=== PATIENT | female | born 1970 | race Caucasian/White ===

== ENCOUNTER 2019-01-08 12:21 | Emergency (ER) | payer OTHER ==
[2019-01-08 12:29] VITALS: BP 140/83
[2019-01-08] MEDS ORDERED: ALB18R INH ×2 (12:36→13:46)
--- NOTE | 2019-01-08 13:48 | ER Report ---
History and Physical Time Seen By MD: 12:45 Hx. of Stated Complaint: PATIENT STATES BRONCHITIS 1 MONTH AGO AND FINISHED ABD AND STEROIDS A FEW WEEKS AGO. JUST MOVED FROM [facility]. STATES SHE IS ALMOST OUT OF HER VENTOLIN. STATES HER BREATHING IS FINE BUT NOT THE BEST. APPEARS RELAXED AND NORMAL BREATHING HPI/ROS Moved to [place] from [place]. Is out of her Albuterol MDI, and has been needing it prn. No chest pain. No fever. Daily smoker. No PCM. Remainder of the 14 system rev: Yes Allergies: Coded Allergies: No Known Drug Allergies (Unverified , 01/08/19) Home Meds Active Scripts Albuterol Sulfate (VENTOLIN HFA) 18 Gm Inh, 2 PUFF INH Q4-6H for 30 Days, #1 INH Prov:CINTHIA MONTEIRO MD 01/08/19 Reported Medications Albuterol Sulfate (VENTOLIN HFA) 18 Gm Inh, 2 PUFF INH Q4-6H, INH 01/08/19 Reviewed Nurses Notes: Yes Old Medical Records Reviewed: Yes Constitutional Vital Sign - Last 24 Hours 01/08/19 12:29 Pulse 78 Resp 16 B/P (MAP) 140/83 Pulse Ox 97 O2 Delivery Room Air Physical Exam General Appearance: The patient is alert, has no immediate need for airway protection and no current signs of toxicity. Eyes: Pupils equal and round no injection. Respiratory: Chest is non tender, lungs are clear to auscultation. Cardiac: regular rate and rhythm Skin: No rashes or lesions. Medical Decision Making ED Course/Re-evaluation ED Course No acute complaints. Presented to the ED for refill of Albuterol MDI. Given RX for Ventolin. Decision to Disposition Date: Jan 08, 2019 Decision to Disposition Time: 13:45 Depart Departure Latest Vital Signs Vital Signs Date Time Temp Pulse Resp B/P (MAP) Pulse Ox O2 Delivery O2 Flow Rate FiO2 01/08/19 12:29 78 16 140/83 97 Room Air Impression: Primary Impression: Medication refill Condition: Improved Disposition: HOME OR SELF-CARE New Scripts Albuterol Sulfate (VENTOLIN HFA) 18 Gm Inh 2 PUFF INH Q4-6H for 30 Days, #1 INH Prov: CINTHIA MONTEIRO MD 01/08/19 Departure Forms: Medications Reconciliation, Patient Portal Information, ER Transition Record Additional Instructions: You have an appointment scheduled with a primary provider on FridayJanuary 22 at 0800 in the [facility] CINTHIA MONTEIRO MD Jan 08, 2019 13:48
== END 2019-01-08 13:52 | disposition home or self-care (01) ==
LOC: ER 12:49
DX: Z76.0 Encounter for issue of repeat prescription (principal); J45.909 Unspecified asthma, uncomplicated
CPT/HCPCS: 99282